=== PATIENT | female | born 1990 | race Caucasian/White ===

== ENCOUNTER 2019-01-17 08:09 | Emergency (ER) | payer OTHER ==
[2019-01-17] MEDS: ACETAMINOPHEN 500 MG TAB PO (08:27)
== END 2019-01-17 11:17 | disposition home or self-care (01) ==
LOC: FTE 08:09
DX: M54.5 Low back pain (principal)
CPT/HCPCS: 72100; 99283-25

== ENCOUNTER 2019-04-25 17:50 | Emergency (ER) | payer OTHER | END 2019-04-25 18:10 | disposition home or self-care (01) | LOC: E/R 17:50 | DX: K29.00 Acute gastritis without bleeding (principal) | CPT/HCPCS: 99282 ==

== ENCOUNTER 2019-07-07 11:00 | Emergency (ER) | payer OTHER ==
[2019-07-07] MEDS: predniSONE 20 MG TAB PO (12:33)
[2019-07-07] MEDS: ALBUTEROL 0.083% (NEB) 2.5 MG/3 ML AMP HHN (12:43)
== END 2019-07-07 13:23 | disposition home or self-care (01) ==
LOC: FTE 11:00
DX: R05 Cough (principal)
CPT/HCPCS: 94664; 99283-25